=== PATIENT | female | born 1960 | race Caucasian/White ===

== ENCOUNTER → 2017-12-18 | Outpatient (CLI) | payer OTHER ==
[2017-12-18 17:42] LABS: CREATININE 0.9 mg/dL (0.6-1.3)
== END ==
LOC: M.CT 17:20
PROVIDERS: Internal Medicine
DX: K57.30 Diverticulosis of large intestine without perforation or abscess without bleeding (principal); J98.11 Atelectasis; K76.0 Fatty (change of) liver, not elsewhere classified; M51.37 Other intervertebral disc degeneration, lumbosacral region; M54.5 Low back pain